=== PATIENT | female | born 1965 | race Caucasian/White ===

== ENCOUNTER → 2018-04-25 | Outpatient (CLI) | payer BC ==
[~2018-04-25] MED LIST: ADDERALL20 MG PO; AMOXICILLIN 8751 TAB PO; CLINDAMYCIN HC300 MG PO; FLONASE NASAL S16 GM NS; LORTAB 5/500 501 TAB PO; LORTAB 7.5/5001 TAB; NAPROSYN500 MG PO; NORCO 325 MG-51 TAB PO; PERCOCET 5/321 UDTAB PO; SILVADENE CREAM1 TU TP; ZOCOR 10MG10 MG PO; [UNRECOGNIZED DRUG - OTHER]
== END ==
LOC: MC.RAD 16:30
DX: Z12.31 Encounter for screening mammogram for malignant neoplasm of breast (principal); R92.0 Mammographic microcalcification found on diagnostic imaging of breast; N63.10 Unspecified lump in the right breast, unspecified quadrant; N63.20 Unspecified lump in the left breast, unspecified quadrant

== ENCOUNTER → 2018-04-30 | Outpatient (CLI) | payer BC | LOC: MC.RAD 13:29 | DX: R92.0 Mammographic microcalcification found on diagnostic imaging of breast (principal) ==

== ENCOUNTER → 2021-05-12 | Outpatient (CLI) | payer BC | LOC: MC.RAD 15:16 | DX: Z12.31 Encounter for screening mammogram for malignant neoplasm of breast (principal); N64.89 Other specified disorders of breast; R92.0 Mammographic microcalcification found on diagnostic imaging of breast ==